=== PATIENT | female | born 1995 ===

== ENCOUNTER 2019-07-14 00:54 | Inpatient (IN) | payer MEDICAID ==
[2019-07-14] MEDS ORDERED: Water For Irrigation,Sterile 1,000 ML Container IRR PRN (01:39)
[2019-07-14] MEDS ORDERED: Ondansetron 4 MG/2 ML SDV IVPUSH PRN (01:39)
[2019-07-14] MEDS ORDERED: Misoprostol 25 MCG (1/4 of 100 MCG) Tab VAG PRN (01:39)
[2019-07-14] MEDS ORDERED: Lidocaine 1% 50 ML MDV INJECT PRN (01:39)
[2019-07-14] MEDS ORDERED: Butorphanol 1 MG/ML SDV IVPUSH PRN (01:39)
[2019-07-14] MEDS ORDERED: Misoprostol 200 MCG Tab PO PRN (01:39)
[2019-07-14] MEDS ORDERED: Sodium Chloride 0.9% 10 ML Syringe FLUSH PRN (01:39)
[2019-07-14] MEDS ORDERED: Tranexamic Acid 1,000 MG in Sodium Chloride 0.9% 100 ML IV PRN (01:39)
[2019-07-14] MEDS ORDERED: Carboprost Tromethamine 250 MCG/1 ML Amp IM PRN (01:39)
[2019-07-14] MEDS ORDERED: Sodium Chloride 0.9% 10 ML SDV IV PRN (01:39)
[2019-07-14] MEDS ORDERED: Nalbuphine 10 MG/1 ML Vial IVPUSH PRN (01:39)
[2019-07-14] MEDS ORDERED: Terbutaline 1 MG/ML SDV SUBCUT PRN (01:39)
[2019-07-14] MEDS ORDERED: Sodium Chloride 0.9% 2.5 ML Syringe FLUSH PRN (01:39)
[2019-07-14] MEDS ORDERED: Methylergonovine 0.2 MG/1 ML Amp IM PRN (01:39)
[2019-07-14] MEDS ORDERED: Oxytocin/0.9 % Sodium Chloride 30 UNIT/500 ML BAG IV SCH ×2 (01:45)
[2019-07-14] MEDS: Lactated Ringers 1,000 ML IV SCH ×2 (02:23→16:22)
[2019-07-14] MEDS ORDERED: Misoprostol 25 MCG (1/4 of 100 MCG) Tab PO ONE (02:31)
[2019-07-14] MEDS: Misoprostol 25 MCG (1/4 of 100 MCG) Tab VAG PRN ×3 (06:42→19:50)
[2019-07-14] MEDS: Misoprostol 25 MCG (1/4 of 100 MCG) Tab PO SCH ×2 (06:42→09:11)
--- NOTE | 2019-07-14 07:48 | PCM.DCSUM1 ---
Discharge Summary - Hospital Course Diagnosis: Stroke: No - Discharge Data Discharge Date: 07/14/19 Discharge Disposition: Home, Self-Care 01 Condition: Good - Referral to Home Health Primary Care Physician: PCP None - Patient Instructions Diet: Usual Diet as Tolerated Activity: As Tolerated Driving: Do Not Drive Showering/Bathing: May Shower - Discharge Plan - Discharge Summary/Plan Comment DC Time >30 min.: Yes - General Info Date of Service: 07/14/19 Functional Status: Reports: Pain Controlled - Review of Systems General: Reports: No Symptoms HEENT: Reports: No Symptoms Pulmonary: Reports: No Symptoms Cardiovascular: Reports: No Symptoms Gastrointestinal: Reports: No Symptoms Genitourinary: Reports: No Symptoms Musculoskeletal: Reports: No Symptoms Skin: Reports: No Symptoms Neurological: Reports: No Symptoms Psychiatric: Reports: No Symptoms - Patient Data Weight - Most Recent: 68.039 kg Lab Results - Last 24 hrs: Laboratory Results - last 24 hr 07/14/19 07/14/19 Range/Units 02:00 02:00 WBC 8.67 (4.0-11.0) K/uL RBC 3.74 L (4.30-5.90) M/uL Hgb 9.5 L (12.0-16.0) g/dL Hct 29.9 L (36.0-46.0) % MCV 79.9 L (80.0-98.0) fL MCH 25.4 L (27.0-32.0) pg MCHC 31.8 (31.0-37.0) g/dL RDW Std Deviation 41.3 (28.0-62.0) fl RDW Coeff of Gloria 15 (11.0-15.0) % Plt Count 213 (150-400) K/uL MPV 10.10 (7.40-12.00) fL Blood Type O POSITIVE Antibody Screen NEGATIVE Med Orders - Current: Current Medications Butorphanol Tartrate (Stadol) 1 mg IVPUSH Q1H PRN PRN Reason: Pain Carboprost Tromethamine (Hemabate Ds) 250 mcg IM ASDIRECTED PRN PRN Reason: Post Hemorrhage Lactated Ringer's (Ringers, Lactated) 1,000 mls @ 150 mls/hr IV ASDIRECTED EUGENE Last Admin: 07/14/19 02:23 Dose: 150 mls/hr Oxytocin/Sodium Chloride (Oxytocin 30 Unit/500 Ml-Ns) 30 unit in 500 mls @ 2 mls/hr IV TITRATE [facility]; Protocol Oxytocin/Sodium Chloride (Oxytocin 30 Unit/500 Ml-Ns) 30 unit in 500 mls @ 999 mls/hr IV TITRATE [facility] Tranexamic Acid 1,000 mg/ (Sodium Chloride) 110 mls @ 660 mls/hr IV ONETIME PRN PRN Reason: Bleeding Lidocaine HCl (Xylocaine 1%) 50 ml INJECT ONETIME PRN PRN Reason: Laceration repair Methylergonovine Maleate (Methergine) 0.2 mg IM ASDIRECTED PRN PRN Reason: Post Hemorrhage Misoprostol (Cytotec) 25 mcg VAG ONETIME PRN PRN Reason: Cervical Ripening Last Admin: 07/14/19 02:40 Dose: 25 mcg Misoprostol (Cytotec) 25 mcg VAG Q4H PRN PRN Reason: Cervical Ripening Last Admin: 07/14/19 06:42 Dose: 25 mcg Misoprostol (Cytotec) 200 mcg PO ONETIME PRN PRN Reason: Post Hemorrhage Misoprostol (Cytotec) 25 mcg PO BID EUGENE Last Admin: 07/14/19 06:42 Dose: 25 mcg Nalbuphine HCl (Nubain) 10 mg IVPUSH Q1H PRN PRN Reason: Pain (severe 7-10) Ondansetron HCl (Zofran) 4 mg IVPUSH Q4H PRN PRN Reason: Nausea/Vomiting Sodium Chloride (Saline Flush) 10 ml FLUSH ASDIRECTED PRN PRN Reason: Keep Vein Open Sodium Chloride (Saline Flush) 2.5 ml FLUSH ASDIRECTED PRN PRN Reason: Keep Vein Open Sodium Chloride (Normal Saline) 10 ml IV ASDIRECTED PRN PRN Reason: IV Use Sterile Water (Sterile Water For Irrigation) 1,000 ml IRR ASDIRECTED PRN PRN Reason: delivery Terbutaline Sulfate (Brethine) 0.25 mg SUBCUT ASDIRECTED PRN PRN Reason: Tacysystole Discontinued Medications Misoprostol (Cytotec) 25 mcg PO ONETIME ONE Stop: 07/14/19 02:32 Last Admin: 07/14/19 02:40 Dose: 25 mcg - Exam General: Reports: Alert, Oriented HEENT: Reports: Pupils Equal, Pupils Reactive, EOMI, Mucous Membr. Moist/[place] Neck: Reports: Supple Lungs: Reports: Clear to Auscultation, Normal Respiratory Effort Cardiovascular: Reports: Regular Rate, Regular Rhythm GI/Abdominal Exam: Normal Bowel Sounds, Soft, Non-Tender, No Organomegaly, No Distention, No Abnormal Bruit, No Mass, Pelvis Stable (Female) Exam: Normal External Exam, Normal Speculum Exam, Normal Bimanual Exam Rectal (Female) Exam: Normal Exam, Normal Rectal Tone Back Exam: Reports: Normal Inspection, Full Range of Motion Extremities: Normal Inspection, Normal Range of Motion, Non-Tender, No Pedal Edema, Normal Capillary Refill Skin: Reports: Warm, Dry, Intact Wound/Incisions: Reports: Healing Well Neurological: Reports: No New Focal Deficit Psy/Mental Status: Reports: Alert, Normal Affect, Normal Mood
--- NOTE | 2019-07-14 11:28 | PCM.LDHP ---
L&D History of Present Illness - General Date of Service: 07/14/19 Admit Problem/Dx: Patient Status Order with Admit Dx/Problem 07/14/19 01:40 Patient Status [ADT] Routine Admission Diagnosis/Problem Admission Diagnosis/Problem Source of Information: Patient History Limitations: Reports: No Limitations - History of Present Illness Improves with: Reports: None Worsens with: Reports: None Associated Symptoms: Reports: N - Related Data Allergies/Adverse Reactions: Allergies Allergy/AdvReac Type Severity Reaction Status Date / Time No Known Allergies Allergy Verified 07/14/19 01:09 Past Medical History - Past Health History Medical/Surgical History: Denies 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: Social & Family History - Family History Family Medical History: Noncontributory - Tobacco Use Smoking Status *Q: Never Smoker Second Hand Smoke Exposure: No - Caffeine Use Caffeine Use: Reports: Soda - Recreational Drug Use Recreational Drug Use: No H&P Review of Systems - Review of Systems: Review Of Systems: See Below General: Reports: No Symptoms HEENT: Reports: No Symptoms Pulmonary: Reports: No Symptoms Cardiovascular: Reports: No Symptoms Gastrointestinal: Reports: No Symptoms Genitourinary: Reports: No Symptoms Musculoskeletal: Reports: No Symptoms Skin: Reports: No Symptoms Psychiatric: Reports: No Symptoms Neurological: Reports: No Symptoms Hematologic/Lymphatic: Reports: No Symptoms Immunologic: Reports: No Symptoms L&D Exam - Exam Exam: See Below - Vital Signs Weight: 68.039 kg - OB Specific Contraction Intensity: Mild to Moderate Movement: Active Heart Tones: Present Presentation: Vertex - Maddox Score Maddox Score Cervix Position: Midposition Maddox Score Consistency: Soft Maddox Score Effacement: 51-70% Maddox Score Dilation: 1-2 cm - Exam General: Alert, Oriented HEENT: PERRLA, Conjunctiva Clear, EACs Clear, EOMI, Hearing Intact, Mucosa Moist & Rover, Nares Patent, Normal Nasal Septum, Posterior Pharynx Clear, TMs Clear Neck: Supple, Trachea Midline Lungs: Clear to Auscultation, Normal Respiratory Effort Cardiovascular: Regular Rate, Regular Rhythm GI/Abdominal Exam: Normal Bowel Sounds, Soft, Non-Tender, No Organomegaly, No Distention, No Abnormal Bruit, No Mass, Pelvis Stable Rectal Exam: Normal Exam, Normal Rectal Tone Genitourinary: Normal external exam, Normal bimanual exam, Normal speculum exam Back Exam: Normal Inspection, Full Range of Motion Extremities: Normal Inspection, Normal Range of Motion, Non-Tender, No Pedal Edema, Normal Capillary Refill Skin: Warm, Dry, Intact Neurological: Cranial Nerves Intact, Reflexes Equal Bilateral Psychiatric: Alert, Normal Affect, Normal Mood - Patient Data Lab Results Last 24 hrs: Laboratory Results - last 24 hr 07/14/19 07/14/19 Range/Units 02:00 02:00 WBC 8.67 (4.0-11.0) K/uL RBC 3.74 L (4.30-5.90) M/uL Hgb 9.5 L (12.0-16.0) g/dL Hct 29.9 L (36.0-46.0) % MCV 79.9 L (80.0-98.0) fL MCH 25.4 L (27.0-32.0) pg MCHC 31.8 (31.0-37.0) g/dL RDW Std Deviation 41.3 (28.0-62.0) fl RDW Coeff of Gloria 15 (11.0-15.0) % Plt Count 213 (150-400) K/uL MPV 10.10 (7.40-12.00) fL Blood Type O POSITIVE Antibody Screen NEGATIVE Result Diagrams: 07/14/19 02:00 Problem List Initiated/Reviewed/Updated: Yes Orders Last 24hrs: Active Orders 24 hr Category Date Time Status Patient Status [ADT] Routine ADT 07/14/19 01:40 Active Bedrest Bathroom Privileges [RC] ASDIRECTED Care 07/14/19 01:40 Active Communication Order [RC] ASDIRECTED Care 07/14/19 01:40 Active Communication Order [RC] ASDIRECTED Care 07/14/19 01:40 Active Communication Order [RC] ASDIRECTED Care 07/14/19 01:40 Active Heart Tones [RC] CONTINUOUS Care 07/14/19 01:40 Active Non Stress Test [RC] PER UNIT ROUTINE Care 07/14/19 01:40 Active May Shower [RC] ASDIRECTED Care 07/14/19 01:40 Active Notify Provider [RC] PRN Care 07/14/19 01:40 Active Notify Provider [RC] PRN Care 07/14/19 01:40 Active Notify Provider [RC] PRN Care 07/14/19 01:40 Active Notify Provider [RC] STAT Care 07/14/19 01:40 Active Oxygen Therapy [RC] ASDIRECTED Care 07/14/19 01:40 Active Up ad Leila [RC] ASDIRECTED Care 07/14/19 01:40 Active Vaginal Exam [RC] PRN Care 07/14/19 01:40 Active Vaginal Exam [RC] PRN Care 07/14/19 01:40 Active Vital Signs [RC] PER UNIT ROUTINE Care 07/14/19 01:40 Active Vital Signs [RC] PER UNIT ROUTINE Care 07/14/19 01:40 Active Butorphanol [Stadol] Med 07/14/19 01:39 Active 1 mg IVPUSH Q1H PRN Carboprost Tromethamine [Hemabate DS] Med 07/14/19 01:39 Active 250 mcg IM ASDIRECTED PRN Lactated Ringers [Ringers, Lactated] 1,000 ml Med 07/14/19 01:45 Active IV ASDIRECTED Lidocaine 1% [Xylocaine 1%] Med 07/14/19 01:39 Active 50 ml INJECT ONETIME PRN Methylergonovine [Methergine] Med 07/14/19 01:39 Active 0.2 mg IM ASDIRECTED PRN Nalbuphine [Nubain] Med 07/14/19 01:39 Active 10 mg IVPUSH Q1H PRN Ondansetron [Zofran] Med 07/14/19 01:39 Active 4 mg IVPUSH Q4H PRN Oxytocin/0.9 % Sodium Chloride [Oxytocin 30 Unit/500 ML Med 07/14/19 01:45 Active -NS] 30 unit in 500 ml IV TITRATE Oxytocin/0.9 % Sodium Chloride [Oxytocin 30 Unit/500 ML Med 07/14/19 01:45 Active -NS] 30 unit in 500 ml IV TITRATE Sodium Chloride 0.9% [Normal Saline] Med 07/14/19 01:39 Active 10 ml IV ASDIRECTED PRN Sodium Chloride 0.9% [Saline Flush] Med 07/14/19 01:39 Active 10 ml FLUSH ASDIRECTED PRN Sodium Chloride 0.9% [Saline Flush] Med 07/14/19 01:39 Active 2.5 ml FLUSH ASDIRECTED PRN Terbutaline [Brethine] Med 07/14/19 01:39 Active 0.25 mg SUBCUT ASDIRECTED PRN Tranexamic Acid [Cyklokapron] 1,000 mg Med 07/14/19 01:39 Active Sodium Chloride 0.9% [Normal Saline] 100 ml IV ONETIME Water For Irrigation,Sterile [Sterile Water for Med 07/14/19 01:39 Active Irrigation] 1,000 ml IRR ASDIRECTED PRN miSOPROStol [Cytotec] Med 07/14/19 01:39 Active 200 mcg PO ONETIME PRN miSOPROStol [Cytotec] Med 07/14/19 09:00 Active 25 mcg PO Q4H PRN miSOPROStol [Cytotec] Med 07/14/19 01:39 Active 25 mcg VAG ONETIME PRN miSOPROStol [Cytotec] Med 07/14/19 01:39 Active 25 mcg VAG Q4H PRN Scalp Electrode [WOMSER] Per Unit Routine Oth 07/14/19 01:40 Ordered Medication Administration Instruction [OM.PC] Q3H Oth 07/14/19 01:45 Ordered Peripheral IV Insertion Adult [OM.PC] Routine Oth 07/14/19 01:40 Ordered Resuscitation Status Routine Resus Stat 07/14/19 01:39 Ordered Medication Orders Butorphanol Tartrate (Stadol) 1 mg IVPUSH Q1H PRN PRN Reason: Pain Carboprost Tromethamine (Hemabate Ds) 250 mcg IM ASDIRECTED PRN PRN Reason: Post Hemorrhage Lactated Ringer's (Ringers, Lactated) 1,000 mls @ 150 mls/hr IV ASDIRECTED EUGENE Last Admin: 07/14/19 02:23 Dose: 150 mls/hr Oxytocin/Sodium Chloride (Oxytocin 30 Unit/500 Ml-Ns) 30 unit in 500 mls @ 2 mls/hr IV TITRATE [facility]; Protocol Oxytocin/Sodium Chloride (Oxytocin 30 Unit/500 Ml-Ns) 30 unit in 500 mls @ 999 mls/hr IV TITRATE [facility] Tranexamic Acid 1,000 mg/ (Sodium Chloride) 110 mls @ 660 mls/hr IV ONETIME PRN PRN Reason: Bleeding Lidocaine HCl (Xylocaine 1%) 50 ml INJECT ONETIME PRN PRN Reason: Laceration repair Methylergonovine Maleate (Methergine) 0.2 mg IM ASDIRECTED PRN PRN Reason: Post Hemorrhage Misoprostol (Cytotec) 25 mcg VAG ONETIME PRN PRN Reason: Cervical Ripening Last Admin: 07/14/19 02:40 Dose: 25 mcg Misoprostol (Cytotec) 25 mcg VAG Q4H PRN PRN Reason: Cervical Ripening Last Admin: 07/14/19 06:42 Dose: 25 mcg Misoprostol (Cytotec) 200 mcg PO ONETIME PRN PRN Reason: Post Hemorrhage Misoprostol (Cytotec) 25 mcg PO Q4H PRN PRN Reason: Other Nalbuphine HCl (Nubain) 10 mg IVPUSH Q1H PRN PRN Reason: Pain (severe 7-10) Ondansetron HCl (Zofran) 4 mg IVPUSH Q4H PRN PRN Reason: Nausea/Vomiting Sodium Chloride (Saline Flush) 10 ml FLUSH ASDIRECTED PRN PRN Reason: Keep Vein Open Sodium Chloride (Saline Flush) 2.5 ml FLUSH ASDIRECTED PRN PRN Reason: Keep Vein Open Sodium Chloride (Normal Saline) 10 ml IV ASDIRECTED PRN PRN Reason: IV Use Sterile Water (Sterile Water For Irrigation) 1,000 ml IRR ASDIRECTED PRN PRN Reason: delivery Terbutaline Sulfate (Brethine) 0.25 mg SUBCUT ASDIRECTED PRN PRN Reason: Tacysystole
[2019-07-14] MEDS: Misoprostol 25 MCG (1/4 of 100 MCG) Tab PO PRN ×2 (15:41→19:51)
[2019-07-14] MEDS ORDERED: Acetaminophen 500 MG Tab PO ONE (18:11)
[2019-07-14] MEDS ORDERED: fentaNYL 100 MCG/2 ML SDV ONE (22:39)
[2019-07-14] MEDS ORDERED: Benzocaine/Menthol 20%-0.5% Spray 78 GM Cannister TOP PRN (23:04)
[2019-07-14] MEDS ORDERED: Bisacodyl 10 MG Supp RECTAL PRN (23:04)
[2019-07-14] MEDS ORDERED: Witch Hazel Medicated Pads 40/Jar TOP PRN (23:04)
[2019-07-14] MEDS ORDERED: oxyCODONE 5 MG Tab PO PRN (23:04)
[2019-07-14] MEDS ORDERED: Ibuprofen 400 MG Tab PO PRN (23:04)
[2019-07-14] MEDS ORDERED: Docusate Sodium 100 MG Cap PO PRN (23:04)
[2019-07-14] MEDS ORDERED: Acetaminophen 500 MG Tab PO PRN ×2 (23:04)
[2019-07-15] MEDS: Ibuprofen 800 MG Tab PO PRN ×3 (00:22→18:13)
[2019-07-15] MEDS: Lanolin 100% Cream 7 GM Tube TOP PRN (00:23)
--- NOTE | 2019-07-15 02:36 | OR ---
SURGEON: Erik Jones MD DATE OF PROCEDURE: DELIVERY NOTE: Ms. Remy is -[id number] patient. She is primigravida. She is followed in our clinic primarily by me. She is 39 plus 1 weeks. She is admitted for elective induction for . Her GBS status was negative and all her screen was normal. The patient at the time of admission, she was 1 cm, 70%, vertex -3. She was induced with Cytotec vaginally and orally. She required 3 doses of Cytotec and she started radha on her own irregularly. After her 3rd dose of Cytotec, she progressed fast. The patient declined the epidural and she became complete-complete, and she was able to accomplish normal spontaneous vaginal delivery of a male fetus, cried immediately. score reported to be 8 and 9. The placenta delivered spontaneous complete and intact without any problem. There was no need for episiotomy. There was no perineal, labial, or vaginal laceration. Estimated blood loss was 300 to 350 mL. heart rate was category 1 through the entire process of labor. JAIMIE / SHASHI /[id number]
--- NOTE | 2019-07-15 08:42 | PCM.PNPP ---
- General Info Date of Service: 07/15/19 Admission Dx/Problem (Free Text): Patient Status Order with Admit Dx/Problem 07/14/19 01:40 Patient Status [ADT] Routine Admission Diagnosis/Problem Admission Diagnosis/Problem Functional Status: Reports: Pain Controlled, Tolerating Diet, Ambulating, Urinating - Review of Systems General: Reports: No Symptoms HEENT: Reports: No Symptoms Pulmonary: Reports: No Symptoms Cardiovascular: Reports: No Symptoms Gastrointestinal: Reports: No Symptoms Genitourinary: Reports: No Symptoms Musculoskeletal: Reports: No Symptoms Skin: Reports: No Symptoms Neurological: Reports: No Symptoms Psychiatric: Reports: No Symptoms - General Info Date of Service: 07/15/19 - Patient Data Vital Signs - Most Recent: Last Vital Signs Temp 37.6 C 07/14/19 18:26 Pulse Resp BP Pulse Ox Weight - Most Recent: 68.039 kg Lab Results - Last 24 Hours: Laboratory Results - last 24 hr 07/15/19 Range/Units 05:40 Hgb 9.3 L (12.0-16.0) g/dL Hct 30.1 L (36.0-46.0) % Med Orders - Current: Current Medications Acetaminophen (Tylenol Extra Strength) 500 mg PO Q4H PRN PRN Reason: Pain Acetaminophen (Tylenol Extra Strength) 1,000 mg PO Q4H PRN PRN Reason: Pain Benzocaine/Menthol (Dermoplast Pain Relief 20%-0.5% [place]) 78 gm TOP ASDIRECTED PRN PRN Reason: Perineal Comfort Measure Last Admin: 07/15/19 00:23 Dose: 1 spray Bisacodyl (Dulcolax) 10 mg RECTAL ONETIME PRN PRN Reason: Constipation Butorphanol Tartrate (Stadol) 1 mg IVPUSH Q1H PRN PRN Reason: Pain Carboprost Tromethamine (Hemabate Ds) 250 mcg IM ASDIRECTED PRN PRN Reason: Post Hemorrhage Docusate Sodium (Colace) 100 mg PO BID PRN PRN Reason: Constipation Emollient Ointment (Lansinoh Hpa) 0 gm TOP ASDIRECTED PRN PRN Reason: Sore Nipples Last Admin: 07/15/19 00:23 Dose: 1 gm Lactated Ringer's (Ringers, Lactated) 1,000 mls @ 150 mls/hr IV ASDIRECTED EUGENE Last Admin: 07/14/19 16:22 Dose: 150 mls/hr Oxytocin/Sodium Chloride (Oxytocin 30 Unit/500 Ml-Ns) 30 unit in 500 mls @ 2 mls/hr IV TITRATE [facility]; Protocol Oxytocin/Sodium Chloride (Oxytocin 30 Unit/500 Ml-Ns) 30 unit in 500 mls @ 999 mls/hr IV TITRATE EUGENE Last Admin: 07/14/19 23:00 Dose: 999 mls/hr Tranexamic Acid 1,000 mg/ (Sodium Chloride) 110 mls @ 660 mls/hr IV ONETIME PRN PRN Reason: Bleeding Ibuprofen (Motrin) 400 mg PO Q4H PRN PRN Reason: Pain Ibuprofen (Motrin) 800 mg PO Q6H PRN PRN Reason: Pain Last Admin: 07/15/19 00:22 Dose: 800 mg Lidocaine HCl (Xylocaine 1%) 50 ml INJECT ONETIME PRN PRN Reason: Laceration repair Methylergonovine Maleate (Methergine) 0.2 mg IM ASDIRECTED PRN PRN Reason: Post Hemorrhage Misoprostol (Cytotec) 25 mcg VAG ONETIME PRN PRN Reason: Cervical Ripening Last Admin: 07/14/19 02:40 Dose: 25 mcg Misoprostol (Cytotec) 25 mcg VAG Q4H PRN PRN Reason: Cervical Ripening Last Admin: 07/14/19 19:50 Dose: 25 mcg Misoprostol (Cytotec) 200 mcg PO ONETIME PRN PRN Reason: Post Hemorrhage Misoprostol (Cytotec) 25 mcg PO Q4H PRN PRN Reason: Other Last Admin: 07/14/19 19:51 Dose: 25 mcg Nalbuphine HCl (Nubain) 10 mg IVPUSH Q1H PRN PRN Reason: Pain (severe 7-10) Last Admin: 07/14/19 20:29 Dose: 10 mg Ondansetron HCl (Zofran) 4 mg IVPUSH Q4H PRN PRN Reason: Nausea/Vomiting Last Admin: 07/14/19 20:34 Dose: 4 mg Oxycodone HCl (Oxycodone) 5 mg PO Q2H PRN PRN Reason: Pain Sodium Chloride (Saline Flush) 10 ml FLUSH ASDIRECTED PRN PRN Reason: Keep Vein Open Sodium Chloride (Saline Flush) 2.5 ml FLUSH ASDIRECTED PRN PRN Reason: Keep Vein Open Sodium Chloride (Normal Saline) 10 ml IV ASDIRECTED PRN PRN Reason: IV Use Sterile Water (Sterile Water For Irrigation) 1,000 ml IRR ASDIRECTED PRN PRN Reason: delivery Terbutaline Sulfate (Brethine) 0.25 mg SUBCUT ASDIRECTED PRN PRN Reason: Tacysystole Witch Ivon (Tucks) 1 pad TOP ASDIRECTED PRN PRN Reason: comfort care Last Admin: 07/15/19 00:24 Dose: 1 pad Discontinued Medications Acetaminophen (Tylenol Extra Strength) 1,000 mg PO ONETIME ONE Stop: 07/14/19 18:12 Last Admin: 07/14/19 18:26 Dose: 1,000 mg Fentanyl (Sublimaze) Confirm Administered Dose 100 mcg .ROUTE .STK-MED ONE Stop: 07/14/19 22:40 Misoprostol (Cytotec) 25 mcg PO ONETIME ONE Stop: 07/14/19 02:32 Last Admin: 07/14/19 02:40 Dose: 25 mcg Misoprostol (Cytotec) 25 mcg PO BID EUGENE Last Admin: 07/14/19 09:11 Dose: Not Given - Interaction Infant Disposition, : Trion to Nursery Infant Interaction: Holding Infant Support Person: Significant Other - Recovery Exam Fundal Tone: Firm - Exam General: Alert, Oriented HEENT: Pupils Equal Lungs: Normal Respiratory Effort GI/Abdominal Exam: Soft, Non-Tender, No Organomegaly, No Distention, Pelvis Stable Extremities: Normal Inspection, Normal Range of Motion, No Pedal Edema Skin: Warm, Dry, Intact Wound/Incisions: Healing Well Neurological: No New Focal Deficit, Normal Speech, Normal Tone, Strength Equal Bilateral Psy/Mental Status: Alert, Normal Affect, Normal Mood - Problem List & Annotations (1) (normal spontaneous vaginal delivery) SNOMED Code(s): 25540257, 106465734 Code(s): O80 - ENCOUNTER FOR FULL-TERM UNCOMPLICATED DELIVERY Status: Acute Priority: High Current Visit: Yes - Problem List Review Problem List Initiated/Reviewed/Updated: Yes - Plan Plan:: PPD#1 A: of viable male, VSS, AF, lochia small, Stable P: Continue pp plan of care
[2019-07-16] MEDS: Ibuprofen 800 MG Tab PO PRN ×2 (00:25→08:55)
[2019-07-16] MEDS ORDERED: Measles, Mumps & Rubella Vaccine 0.5 ML SDV SUBCUT ONE (08:34)
--- NOTE | 2019-07-16 08:40 | PCM.DCSUM1 ---
Discharge Summary - Hospital Course Free Text/Narrative:: Discharge home with . Follow up in 6 weeks for . Diagnosis: Stroke: No Modified Aidee Scale: No Symptoms at All Modified Milnor Scale Score: 0 - Discharge Data Discharge Date: 07/16/19 Discharge Disposition: Home, Self-Care 01 Condition: Good - Referral to Home Health Primary Care Physician: PCP None - Discharge Diagnosis/Problem(s) (1) (normal spontaneous vaginal delivery) SNOMED Code(s): 47502445, [id number] ICD Code: O80 - ENCOUNTER FOR FULL-TERM UNCOMPLICATED DELIVERY Status: Acute Priority: High Current Visit: Yes - Patient Instructions Diet: Usual Diet as Tolerated Activity: As Tolerated Driving: Do Not Drive Showering/Bathing: May Shower Notify Provider of: Fever, Increased Pain, Swelling and Redness, Nausea and/or Vomiting Other/Special Instructions: Discharge home with . Follow up in 6 weeks for . - Discharge Plan *PRESCRIPTION DRUG MONITORING PROGRAM REVIEWED*: Not Applicable *COPY OF PRESCRIPTION DRUG MONITORING REPORT IN PATIENT NIGHAT: Not Applicable Prescriptions/Med Rec: Ibuprofen [Motrin] 800 mg PO Q6H PRN #90 tablet PRN Reason: Pain Home Medications: Home Meds Ibuprofen [Motrin] 800 mg PO Q6H PRN #90 tablet 07/16/19 [Rx] Oxygen Therapy Mode: Room Air Referrals: [facility] [Outside] Erik Jones MD [Physician] - 08/30/19 10:45 am - Discharge Summary/Plan Comment DC Time >30 min.: Yes - General Info Date of Service: 07/16/19 Admission Dx/Problem (Free Text: Patient Status Order with Admit Dx/Problem 07/14/19 01:40 Patient Status [ADT] Routine Admission Diagnosis/Problem Admission Diagnosis/Problem Functional Status: Reports: Pain Controlled, Tolerating Diet, Ambulating, Urinating - Review of Systems General: Reports: No Symptoms HEENT: Reports: No Symptoms Pulmonary: Reports: No Symptoms Cardiovascular: Reports: No Symptoms Gastrointestinal: Reports: No Symptoms Genitourinary: Reports: No Symptoms Musculoskeletal: Reports: No Symptoms Skin: Reports: No Symptoms Neurological: Reports: No Symptoms Psychiatric: Reports: No Symptoms - Patient Data Vitals - Most Recent: Last Vital Signs Temp 36.6 C 07/16/19 05:09 Pulse 77 07/16/19 05:09 Resp 15 07/16/19 05:09 BP 97/54 L 07/16/19 05:09 Pulse Ox 96 07/16/19 05:09 Weight - Most Recent: 68.039 kg Med Orders - Current: Current Medications Acetaminophen (Tylenol Extra Strength) 500 mg PO Q4H PRN PRN Reason: Pain Acetaminophen (Tylenol Extra Strength) 1,000 mg PO Q4H PRN PRN Reason: Pain Benzocaine/Menthol (Dermoplast Pain Relief 20%-0.5% [place]) 78 gm TOP ASDIRECTED PRN PRN Reason: Perineal Comfort Measure Last Admin: 07/15/19 00:23 Dose: 1 spray Bisacodyl (Dulcolax) 10 mg RECTAL ONETIME PRN PRN Reason: Constipation Docusate Sodium (Colace) 100 mg PO BID PRN PRN Reason: Constipation Emollient Ointment (Lansinoh Hpa) 0 gm TOP ASDIRECTED PRN PRN Reason: Sore Nipples Last Admin: 07/15/19 00:23 Dose: 1 gm Ibuprofen (Motrin) 400 mg PO Q4H PRN PRN Reason: Pain Ibuprofen (Motrin) 800 mg PO Q6H PRN PRN Reason: Pain Last Admin: 07/16/19 00:25 Dose: 800 mg Oxycodone HCl (Oxycodone) 5 mg PO Q2H PRN PRN Reason: Pain Sodium Chloride (Saline Flush) 10 ml FLUSH ASDIRECTED PRN PRN Reason: Keep Vein Open Sodium Chloride (Saline Flush) 2.5 ml FLUSH ASDIRECTED PRN PRN Reason: Keep Vein Open Sodium Chloride (Normal Saline) 10 ml IV ASDIRECTED PRN PRN Reason: IV Use Witch Ivon (Tucks) 1 pad TOP ASDIRECTED PRN PRN Reason: comfort care Last Admin: 07/15/19 00:24 Dose: 1 pad Discontinued Medications Acetaminophen (Tylenol Extra Strength) 1,000 mg PO ONETIME ONE Stop: 07/14/19 18:12 Last Admin: 07/14/19 18:26 Dose: 1,000 mg Butorphanol Tartrate (Stadol) 1 mg IVPUSH Q1H PRN PRN Reason: Pain Carboprost Tromethamine (Hemabate Ds) 250 mcg IM ASDIRECTED PRN PRN Reason: Post Hemorrhage Fentanyl (Sublimaze) Confirm Administered Dose 100 mcg .ROUTE .STK-MED ONE Stop: 07/14/19 22:40 Lactated Ringer's (Ringers, Lactated) 1,000 mls @ 150 mls/hr IV ASDIRECTED EUGENE Last Admin: 07/14/19 16:22 Dose: 150 mls/hr Oxytocin/Sodium Chloride (Oxytocin 30 Unit/500 Ml-Ns) 30 unit in 500 mls @ 2 mls/hr IV TITRATE EUGENE; Protocol Oxytocin/Sodium Chloride (Oxytocin 30 Unit/500 Ml-Ns) 30 unit in 500 mls @ 999 mls/hr IV TITRATE [facility] Last Admin: 07/14/19 23:00 Dose: 999 mls/hr Tranexamic Acid 1,000 mg/ (Sodium Chloride) 110 mls @ 660 mls/hr IV ONETIME PRN PRN Reason: Bleeding Lidocaine HCl (Xylocaine 1%) 50 ml INJECT ONETIME PRN PRN Reason: Laceration repair Methylergonovine Maleate (Methergine) 0.2 mg IM ASDIRECTED PRN PRN Reason: Post Hemorrhage Misoprostol (Cytotec) 25 mcg VAG ONETIME PRN PRN Reason: Cervical Ripening Last Admin: 07/14/19 02:40 Dose: 25 mcg Misoprostol (Cytotec) 25 mcg VAG Q4H PRN PRN Reason: Cervical Ripening Last Admin: 07/14/19 19:50 Dose: 25 mcg Misoprostol (Cytotec) 200 mcg PO ONETIME PRN PRN Reason: Post Hemorrhage Misoprostol (Cytotec) 25 mcg PO ONETIME ONE Stop: 07/14/19 02:32 Last Admin: 07/14/19 02:40 Dose: 25 mcg Misoprostol (Cytotec) 25 mcg PO BID [facility] Last Admin: 07/14/19 09:11 Dose: Not Given Misoprostol (Cytotec) 25 mcg PO Q4H PRN PRN Reason: Other Last Admin: 07/14/19 19:51 Dose: 25 mcg Nalbuphine HCl (Nubain) 10 mg IVPUSH Q1H PRN PRN Reason: Pain (severe 7-10) Last Admin: 07/14/19 20:29 Dose: 10 mg Ondansetron HCl (Zofran) 4 mg IVPUSH Q4H PRN PRN Reason: Nausea/Vomiting Last Admin: 07/14/19 20:34 Dose: 4 mg Sterile Water (Sterile Water For Irrigation) 1,000 ml IRR ASDIRECTED PRN PRN Reason: delivery Terbutaline Sulfate (Brethine) 0.25 mg SUBCUT ASDIRECTED PRN PRN Reason: Tacysystole - Exam General: Reports: Alert, Oriented, Cooperative, No Acute Distress Lungs: Reports: Normal Respiratory Effort GI/Abdominal Exam: Soft, Non-Tender, Pelvis Stable (Female) Exam: Deferred, Vaginal Bleeding Rectal (Female) Exam: Deferred Back Exam: Reports: Normal Inspection, Full Range of Motion Extremities: Normal Inspection, Normal Range of Motion, Non-Tender, No Pedal Edema Skin: Reports: Warm, Dry, Intact Neurological: Reports: No New Focal Deficit, Normal Gait, Normal Speech, Normal Tone, Strength Equal Bilateral Psy/Mental Status: Reports: Alert, Normal Affect, Normal Mood
[2019-07-16] MEDS: Lanolin 100% Cream 7 GM Tube TOP PRN (10:34)
== END 2019-07-16 16:00 | disposition home or self-care (01) | DRG 807 ==
LOC: MW.OBCHECK 00:54 → MW.OB 00:55 → OBSVTOIN 22:57 → MW.OB 07-15 02:20
PROVIDERS: ADMIT Obstetrics & Gynecology; ATTEND Obstetrics & Gynecology
PROC: 10E0XZZ Delivery of Products of Conception, External Approach (ICD-10-PCS; principal; 2019-07-14)
PROC: 3E0P7VZ Introduction of Hormone into Female Reproductive, Via Natural or Artificial Opening (ICD-10-PCS; 2019-07-14)
DX: O80 Encounter for full-term uncomplicated delivery (principal); Z37.0 Single live birth; Z3A.39 39 weeks gestation of pregnancy
CPT/HCPCS: 36415; 59025; 59409; 85014; 85018; 85027; 86850; 86900; 86901; A9270-GY; J2300; J2405; J2590; J7120